=== PATIENT | female | born 2000 | race Caucasian/White ===

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

== ENCOUNTER 2020-03-07 09:29 | Emergency (ER) | payer BC, OTHER ==
[~2020-03-07] VITALS: Ht 152.4 cm; Wt 55.7 kg
[~2020-03-07 09:29] MED LIST changes: +IBUP0.77 PO; -IBUP100S2 PO; +LAMO50TA; -METF500T PO; +METF500T13 PO; +VIST50CA PO
[2020-03-07 17:00] VITALS: BP 113/57
== END 2020-03-07 17:49 | disposition home or self-care (01) ==
LOC: M ED 09:29
DX: F43.21 Adjustment disorder with depressed mood (principal); T50.902A Poisoning by unspecified drugs, medicaments and biological substances, intentional self-harm, initial encounter; F12.90 Cannabis use, unspecified, uncomplicated; Z91.5 Personal history of self-harm; Z79.899 Other long term (current) drug therapy

== ENCOUNTER 2022-04-09 22:25 | Emergency (ER) | payer BC, OTHER ==
[~2022-04-09] VITALS: Ht 152.4 cm; Wt 54.5 kg
[2022-04-09] MEDS ORDERED: GABA-283 PO (22:47)
[2022-04-10 02:02] VITALS: BP 117/77
[2022-04-10 03:21] LABS: BASO % 0.5 % (0.0-1.0); EOS # 0.3 10^3/uL (0.0-0.5); EOS % 3.3 % (0.0-3.0); HEMATOCRIT 41.5 % (36.0-47.0); HEMOGLOBIN 13.8 g/dl (12.0-15.5); LYMPH % 35.4 % (24.0-44.0); MEAN CORPUSCULAR HEMOGLOBIN 29.5 pg (27.0-33.0); MEAN CORPUSCULAR HGB CONC 33.3 g/dl (32.0-36.5); MEAN CORPUSCULAR VOLUME 88.7 fl (80.0-96.0); MONO # 0.5 10^3/uL (0.0-0.8); MONO % 6.3 % (2.0-8.0); NEUTROPHILS # 4.6 10^3/uL (1.5-8.5); NEUTROPHILS % 54.3 % (36.0-66.0); PLATELET COUNT, AUTOMATED 256 10^3/uL (150-450); RED BLOOD COUNT 4.68 10^6/uL (4.00-5.40); WHITE BLOOD COUNT 8.6 10^3/uL (4.0-10.0)
[2022-04-10 03:43] LABS: CK-MB VALUE MASS < 1.0 NG/ML (<3.6); CPK CREATINE PHOSPHOKINASE 40 U/L (26-192)
[2022-04-10 03:47] LABS: HCG, SERUM QUALITATIVE NEGATIVE (NEGATIVE)
[2022-04-10 04:03] LABS: ALBUMIN 3.9 GM/DL (3.2-5.2); ALT/SGPT 17 U/L (12-78); BILIRUBIN,DIRECT 0.1 MG/DL (0.0-0.2); BILIRUBIN,TOTAL 0.4 MG/DL (0.2-1.0); BLOOD UREA NITROGEN 8 MG/DL (7-18); CALCIUM LEVEL 9.2 MG/DL (8.5-10.1); CARBON DIOXIDE LEVEL 27 MEQ/L (21-32); CHLORIDE LEVEL 109 MEQ/L (98-107); CREATININE FOR GFR 0.71 MG/DL (0.55-1.30); GLOMERULAR FILTRATION RATE > 60.0 (>60); GLUCOSE, FASTING 92 MG/DL (70-100); LIPASE 85 U/L (73-393); POTASSIUM SERUM 3.8 MEQ/L (3.5-5.1); SODIUM LEVEL 140 MEQ/L (136-145); TOTAL PROTEIN 7.5 GM/DL (6.4-8.2)
== END 2022-04-10 04:56 | disposition left against medical advice (07) ==
LOC: M ED 22:25
DX: Z53.21 Procedure and treatment not carried out due to patient leaving prior to being seen by health care provider (principal)

== ENCOUNTER 2022-11-20 08:34 | Emergency (ER) | payer BC, MEDICAID, OTHER ==
[~2022-11-20 08:34] MED LIST changes: +GABA-283 PO
[2022-11-20 11:37] LABS: HCG, SERUM QUALITATIVE NEGATIVE (NEGATIVE)
[2022-11-20 14:26] VITALS: BP 116/78
== END 2022-11-20 16:03 | disposition home or self-care (01) ==
LOC: M ED 08:34
DX: S00.93XA Contusion of unspecified part of head, initial encounter (principal); S30.0XXA Contusion of lower back and pelvis, initial encounter; W10.1XXA Fall (on)(from) sidewalk curb, initial encounter; E28.2 Polycystic ovarian syndrome; F19.10 Other psychoactive substance abuse, uncomplicated; F43.10 Post-traumatic stress disorder, unspecified; F17.200 Nicotine dependence, unspecified, uncomplicated; F12.10 Cannabis abuse, uncomplicated; Z91.018 Allergy to other foods; Z79.891 Long term (current) use of opiate analgesic